=== PATIENT | female | born 1980 | race African-American/Black ===

== ENCOUNTER 2017-02-09 19:58 | Emergency (ER) | payer OTHER ==
[~2017-02-09] VITALS: Ht 165.1 cm; Wt 104.3 kg
[~2017-02-09 19:58] MED LIST: ATIVAN0.5 M1 PO; ATIVAN0.5 MG PO; CYCLOBENZAPRINE10 M1 PO; FLONASE ALLERG9.9 ML NAS; IBUPROFEN800 M1 PO; LEVSIN0.125 M1 PO; LEXAPRO10 M1 PO; MOTRIN 800MG T800 MG PO; PERCOCET 325 MG1 TA2 PO; ZITHROMAX250 M2 PO; ZOFRAN ODT4 M1 SL
[2017-02-09] MEDS ORDERED: TRAZODONE HCL50 M1 PO (20:26)
[2017-02-09] MEDS ORDERED: ABILIFY10 M1 PO (20:27)
--- NOTE | 2017-02-09 20:35 | ED CARDIAC/CP/PALPITATIONS ---
History of Present Illness General Chief Complaint: Chest Pain Stated Complaint: " CP SINCE YESTERDAY RADIATES TO RT ARM" Source: patient Exam Limitations: no limitations Vital Signs & Intake/Output Vital Signs & Intake/Output Vital Signs Date Time Temp Pulse Resp B/P B/P Pulse O2 O2 Flow FiO2 Mean Ox Delivery Rate 02/09 2158 97.3 71 15 138/72 96 Room Air Room Air 02/10 2120 Room Air Room Air 02/10 2016 98.7 71 15 118/79 98 Room Air Room Air ED Intake and Output 02/10 0000 02/09 1200 Intake Total 0 Output Total Balance 0 Intake, Oral 0 Patient 230 lb Weight Weight Reported by Patient Measurement Method Allergies Coded Allergies: NO KNOWN ALLERGIES (06/17/15) Reconcile Medications Aripiprazole (Abilify) 10 MG TABLET 1 TAB PO DAILY MENTAL HEALTH (Reported) Ibuprofen 600 MG TABLET 1 TAB PO TID PRN PAIN with food Trazodone HCl 50 MG TABLET 1 TAB PO QHS SLEEP (Reported) Triage Note: PT TO ED FOR CHEST PRESSURE AND HEADACHES X 2 DAYS. PT STATES CP IS WORSE WITH PALPATION. +SOB WITH EXERTION. O2 SAT 98% RA. NO ACUTE DISTRESS NOTED. DENIES CHANGE IN VISION WITH BILLY. ALSO REPORTS R ARM PAIN WORSE WITH MOVING ARM. Triage Nurses Notes Reviewed? yes Onset: Gradual Duration: intermittent Timing: recent history Location: substernal Activities at Onset: activity : No Patient currently breastfeeds: No HPI: Patient is a 36-year-old female with a past medical history of anxiety and depression who presents emergency room with concerns of a three-day history of intermittent chest wall pain. Patient states that approximately extremity movements deep inhalation and coughing makes worse. Patient does not smoke. Denies any illicit drug use Denies any family history of cardiac before the age of 50. Patient denies any fevers chills shortness of breath arm pain jaw pain and diaphoresis palpitations nausea leg swelling hemoptysis history of DVT or PE recent travel recent surgery, oral contraceptive use Patient has not taken any medications for symptoms. (JULI HUBBARD) Past History Travel History Traveled to [place] past 21 day No Medical History Any Pertinent Medical History? see below for history Neurological: NONE EENT: NONE Cardiovascular: NONE Respiratory: NONE Gastrointestinal: NONE Hepatic: NONE Renal: NONE Musculoskeletal: NONE Psychiatric: anxiety, depression, DEPRESSION Endocrine: NONE Blood Disorders: NONE Cancer(s): NONE Surgical History Surgical History: non-contributory Psychosocial History Who do you live with Family What is your primary language Nepalese Tobacco Use: Never used ETOH Use: denies use Illicit Drug Use: denies illicit drug use Family History Hx Contributory? No (JULI HUBBARD) Review of Systems Review of Systems Constitutional: Reports: no symptoms. EENTM: Reports: no symptoms. Respiratory: Reports: see HPI. Cardiovascular: Reports: see HPI, chest pain. GI: Reports: no symptoms. Genitourinary: Reports: no symptoms. Musculoskeletal: Reports: no symptoms. Skin: Reports: no symptoms. Neurological/Psychological: Reports: no symptoms. Hematologic/Endocrine: Reports: no symptoms. Immunologic/Allergic: Reports: no symptoms. All Other Systems: Reviewed and Negative (JULI HUBBARD) Physical Exam Physical Exam General Appearance: no apparent distress, alert, comfortable Cardiovascular: regular rate/rhythm Comments: Well-developed well-nourished person in no acute distress HEENT: Normal EENT exam Neck: Supple, no lymphadenopathy, normal range of motion without pain or tenderness Back: Nontender, no CVA tenderness. Cardiovascular: Regular rate and rhythms no murmurs rubs or gallops, normal JVP Respiratory: Anterior substernal point tenderness upon palpation. No respiratory distress.breath sounds clear to auscultation bilaterally Abdomen: Soft, nontender nondistended, no appreciable organomegaly. Normal bowel sounds. No ascites Extremity: No edema, no calf tenderness to palpation, normal and equal pulses. Bilateral upper extremity active range of motion reproduced chest wall pain Bilateral resisted range of motion noted with horizontal adduction and reproduced chest wall pain Neuro: Alert oriented x3, motor sensory normal, Skin: No appreciable rash on exposed skin, skin is warm and dry. Psych: Mood and affect is normal, memory and judgment is normal. Core Measures ACS in differential dx? Yes Severe Sepsis Present: No Septic Shock Present: No (JULI HUBBARD) Progress Differential Diagnosis: AMI, aortic dissection, atrial fibrillation, cholecystitis, CHF/pulm edema, costochondritis, hyperkalemia, hypovolemia, hyperthyroid, hyperventilation, intracranial hemorrhage, musculoskeletal pain, myocarditis, pancreatitis, pericarditis, pneumonia, pneumothorax, PSVT, pulmonary embolism, PUD/GERD, PVCs/PACs, respiratory failure, sepsis, unstable angina, V-fib/V-Tach, WPW syndrome Plan of Care: Orders Procedure Date/time Status TROPONIN LEVEL 02/09 2043 Complete COMPREHENSIVE METABOLIC PANEL 02/09 2043 Complete CBC WITHOUT DIFFERENTIAL 02/09 2043 Complete EKG 02/09 2002 Active Laboratory Tests 02/09/172058: Anion Gap 12, Estimated GFR > 60, BUN/Creatinine Ratio 16.3, Glucose 94, Calcium 9.0, Total Bilirubin 0.3, AST 15, ALT 23, Alkaline Phosphatase 84, Troponin I < 0.01, Total Protein 7.0, Albumin 3.8, Globulin 3.2, Albumin/Globulin Ratio 1.2, CBC w Diff NO MAN DIFF REQ, RBC 4.34, MCV 77.8 L, MCH 25.2 L, RDW 17.5 H, MPV 9.2, Gran % 75.2, Lymphocytes % 18.1 L, Monocytes % 5.4, Eosinophils % 0.9, Basophils % 0.4, Absolute Granulocytes 7.7 H, Absolute Lymphocytes 1.8, Absolute Monocytes 0.6, Absolute Eosinophils 0.1, Absolute Basophils 0, PUBS MCHC 32.4 L Patient currently is resting comfortably bedside. EKG was unremarkable known normal sinus rhythm. Patient has reproducible chest wall pain upon palpation and upper extremity movements. PERC score was 0 essentially ruling out pulmonary embolism Patient had unremarkable blood work negative troponin EKG was unremarkable chest x-ray unremarkable. Upon discharge patient looks well no apparent distress and I do not suspect cardiac involvement with patient's chest wall pain (MAYKEL FITZGERALD,JULI) Diagnostic Imaging: Viewed by Me: Radiology Read. Radiology Impression: no acute abnormality, no fracture Initial ED EKG: SINUS RHYTHM NOTED AT 69 BPM Prior EKG: unchanged Comments: PATIENT: HANNAH TAVAREZ PRESENT AGE: 36 PATIENT ACCOUNT NO: [id number] : 80 LOCATION: [facility] ORDERING PHYSICIAN: JULI FITZGERALD SERVICE DATE: 02/09/17 EXAM TYPE: RAD - XRY-CHEST XRAY, PA AND LATERAL EXAMINATION: XR CHEST CLINICAL INFORMATION: Chest pain COMPARISON: None TECHNIQUE: 2 views of the chest were obtained. FINDINGS: No significant abnormality is noted involving the heart, lungs, mediastinum, bony thorax or soft tissues. IMPRESSION: No acute change of the chest. DICTATED BY: SHANIA ARREAGA MD DATE/TIME DICTATED:02/09/172107 MANAGER MBA:MARY KAY (JULI HUBBARD) Departure Departure Disposition: HOME OR SELF CARE Condition: Stable Clinical Impression Primary Impression: Chest wall pain Referrals: JASVIR LIVE (PCP/Family) Additional Instructions: As discussed begin icing the area directly 20 minutes every 2 hours. Begin over -the-counter ibuprofen for pain and inflammation. If no better on Saturday follow -up with primary care doctor. If symptoms worsen return to emergency room Departure Forms: Customer Survey General Discharge Information Prescriptions: Current Visit Scripts Ibuprofen 1 TAB PO TID PRN PAIN #21 TAB with food (JULI HUBBARD) PA/TRUCK DRIVER'S OFFSIDER Co-Sign Statement Statement: ED Attending supervision documentation- [] I saw and evaluated the patient. I have also reviewed all the pertinent lab results and diagnostic results. I agree with the findings and the plan of care as documented in the PA's/TRUCK DRIVER'S OFFSIDER's documentation. [X] I have reviewed the ED Record and agree with the PA's/TRUCK DRIVER'S OFFSIDER's documentation. [] Additions or exceptions (if any) to the PAs/TRUCK DRIVER'S OFFSIDER's note and plan are summarized below: [] (JOSÉ RICHMOND,EVELINE) Critical Care Note Critical Care Note Critical Care Time: non-applicable (JULI HUBBARD)
--- NOTE | 2017-02-09 21:12 | RADIOLOGY REPORT ---
EXAMINATION: XR CHEST CLINICAL INFORMATION: Chest pain COMPARISON: None TECHNIQUE: 2 views of the chest were obtained. FINDINGS: No significant abnormality is noted involving the heart, lungs, mediastinum, bony thorax or soft tissues. IMPRESSION: No acute change of the chest.
[2017-02-09 21:14] LABS: ABSOLUTE BASOPHIL COUNT 0 /CUMM (0.0-0.2); ABSOLUTE EOSINOPHIL COUNT 0.1 /CUMM (0.0-0.7); ABSOLUTE GRANULOCYTE CT 7.7 /CUMM (1.4-6.5); ABSOLUTE LYMPH COUNT 1.8 /CUMM (1.2-3.4); ABSOLUTE MONOCYTE COUNT 0.6 /CUMM (0.10-0.60); BASOPHIL % 0.4 % (0.0-2.0); EOSINOPHIL % 0.9 % (0-5); GRANULOCYTE % 75.2 % (42.2-75.2); HEMATOCRIT 33.8 % (37-47); MEAN CORPUSCULAR HGB 25.2 PG (27.0-31.0); MEAN CORPUSCULAR HGB CONC 32.4 G/DL (33.0-37.0); MEAN CORPUSCULAR VOLUME 77.8 FL (81.0-99.0); MEAN PLATELET VOLUME 9.2 FL (7.4-10.4); PLATELET COUNT 262 /CUMM (130-400); RBC DISTRIBUTION WIDTH 17.5 % (11.5-14.5); RED BLOOD CELL CT 4.34 /CUMM (4.20-5.40); WHITE BLOOD CELL COUNT 10.2 /CUMM (4.8-10.8)
[2017-02-09 21:58] VITALS: BP 138/72
[2017-02-09] MEDS ORDERED: IBUPROFEN600 M1 PO (22:02)
== END 2017-02-09 22:15 ==
LOC: ERH 19:58
PROVIDERS: Physician Assistant
DX: R07.89 Other chest pain (principal)
CPT/HCPCS: 93005; 93010

== ENCOUNTER → 2018-04-17 | Day surgery (SDC) | payer OTHER ==
[~2018-04-17] VITALS: Ht 162.6 cm; Wt 106.1 kg
[~2018-04-17] MED LIST changes: +ABILIFY10 M1 PO; +IBUPROFEN600 M1 PO; +KETOROLAC TROME10 M1 PO; +TRAZODONE HCL50 M1 PO
--- NOTE | 2018-04-17 10:52 | Operative Report ---
Operative/Inv Procedure Report Surgery Date: 04/17/18 Name of Procedure: laparoscopy aspiration of cul de sac fluid Pre-Operative Diagnosis: pain Post-Operative Diagnosis: same Estimated Blood Loss: less than 50ml Surgeon/Automotive Electrical Fitter: Brooklynn Westbrook MD Anesthesia: general endotracheal tube
--- NOTE | 2018-04-23 13:17 | Operative Report ---
Operative/Inv Procedure Report Surgery Date: 04/10/18 Name of Procedure: Laparoscopy Pre-Operative Diagnosis: Pelvic pain Post-Operative Diagnosis: Same Estimated Blood Loss: less than 50ml Surgeon/Size Tester: Brooklynn Westbrook MD Anesthesia: general endotracheal tube Operative/Procedure Note Note: Procedure note patient was seen in the operating placed on position after adequate induction general anesthesia via endotracheal tube patient placed in dorsal supine position the vagina from dorsal fashion Berkowitz was placed sterilely examination under anesthesia performed surgeon regowned and gloved below the umbilicus a stab incision was made to allow for the entry of Veress needle the abdomen was insufflated possibly fully Z CO2 to liver vaginal 20 there is needle was a 10 mm trocar was inserted atraumatically the umbilicus sheath remained placed through that sheath laparoscope was placed and direct visualization a 5 mm port was placed 2 finger breadths of symptoms pubis in midline this allowed surgeon to remove the ovaries and tubes around I all instruments removed from the abdomen maximal CO2 oozing from the abdomen the incision at the umbilicus was oversewn using 0 the fascia 30 the skin patient tolerated that well Marcaine was injected underneath skin on Gandhi cannula was moved from the vagina Berkowitz was removed patient was returned spine position counts correct on patient was awakened from anesthesia transferred recovery room awake alert counts
== END ==
LOC: STS 02:01
DX: R10.2 Pelvic and perineal pain (principal)
CPT/HCPCS: 81025; 88305; J0131; J2250; J3490

== ENCOUNTER 2018-05-04 16:12 | Emergency (ER) | payer OTHER ==
[~2018-05-04] VITALS: Ht 165.1 cm; Wt 108.9 kg
--- NOTE | 2018-05-04 16:37 | ED GI/GU/ABDOMINAL COMPLAINT ---
History of Present Illness General Chief Complaint: General Adult Stated Complaint: SENT BY URGENT CARE FOR STOMACH PAIN FROM SURGERY Source: patient, old records Exam Limitations: no limitations Vital Signs & Intake/Output Vital Signs & Intake/Output Vital Signs Date Time Temp Pulse Resp B/P B/P Pulse O2 O2 Flow FiO2 Mean Ox Delivery Rate 05/04 2047 75 18 156/87 98 Room Air 05/04 1828 Room Air 05/04 1828 98.5 71 18 135/87 100 Room Air ED Intake and Output 05/05 0000 05/04 1200 Intake Total Output Total Balance Patient 240 lb Weight Weight Reported by Patient Measurement Method Allergies Coded Allergies: NO KNOWN ALLERGIES (06/17/15) Reconcile Medications No Known Home Medications Triage Note: PT TO ER ADVISED BY URGENT CARE FOR R/O ABD ADHESIONS. C/O 2 DAY HX OF PERIUMBILICAL PAIN, NAUSEA, AND DYSURIA. LMP 03/18/18, STATES URINE SAMPLE WAS NOT OBTAINED AT [employer] Triage Nurses Notes Reviewed? yes ? N Is pt currently ? No HPI: Patient had a recent laparoscopy for chronic pelvic pain. Patient states that since then she's been having burning with urination. Patient also states that her pain was getting better and then she was told that she didn't go back to work so she went back to work and since then she has been having severe pain in her lower abdomen. Pain increases with turning or movement. There is no radiation. The pain is sharp and burning in nature. She rates the pain as 8 out of 10. There is no nausea or vomiting. (Ghassan RICHMOND,Eddie Silva) Past History Travel History Traveled to [place] past 21 day No Medical History Any Pertinent Medical History? see below for history Neurological: NONE EENT: NONE Cardiovascular: NONE Respiratory: NONE Gastrointestinal: NONE Hepatic: NONE Renal: NONE Musculoskeletal: NONE Psychiatric: anxiety, depression, DEPRESSION Endocrine: NONE Blood Disorders: NONE Cancer(s): NONE Surgical History Surgical History: non-contributory Psychosocial History Who do you live with Family What is your primary language Kenyan Tobacco Use: Never used ETOH Use: occasional use Illicit Drug Use: denies illicit drug use Family History Hx Contributory? No (Ghassan RICHMOND,Eddie Silva) Review of Systems Review of Systems Constitutional: Reports: no symptoms. EENTM: Reports: no symptoms. Respiratory: Reports: no symptoms. Cardiovascular: Reports: no symptoms. GI: Reports: see HPI, abdominal pain. Genitourinary: Reports: see HPI, dysuria. Musculoskeletal: Reports: no symptoms. Skin: Reports: no symptoms. Neurological/Psychological: Reports: no symptoms. Hematologic/Endocrine: Reports: no symptoms. Immunologic/Allergic: Reports: no symptoms. All Other Systems: Reviewed and Negative (Ghassan RICHMOND,Eddie Silva) Physical Exam Physical Exam General Appearance: well developed/nourished, alert, awake, anxious, mild distress Head: atraumatic, normal appearance Eyes: Bilateral: PERRL, EOMI. Ears, Nose, Throat, Mouth: hearing grossly normal, moist mucous membrane Neck: normal inspection, supple, full range of motion Respiratory: normal breath sounds, chest non-tender, no respiratory distress, lungs clear Cardiovascular: regular rate/rhythm, normal peripheral pulses Gastrointestinal: normal bowel sounds, soft, no organomegaly, tenderness, NO GUARDING OR REBOUND Back: normal inspection, normal range of motion Extremities: normal range of motion Neurologic/Psych: no motor/sensory deficits, awake, alert, oriented x 3, normal gait, normal mood/affect Skin: intact, normal color, warm/dry Core Measures ACS in differential dx? No Sepsis Present: No Sepsis Focused Exam Completed? No (Ghassan RICHMOND,Eddie Silva) Progress Differential Diagnosis: POST OP PAIN Plan of Care: Orders Procedure Date/time Status URINALYSIS 05/04 163 Complete HUMAN BETA HCG SCREEN 05/04 163 Complete COMPREHENSIVE METABOLIC PANEL 05/04 163 Complete CBC WITHOUT DIFFERENTIAL 05/04 163 Complete Laboratory Tests 05/04/18 1823: Urine Color YEL, Urine Clarity CLEAR, Urine pH 7.5, Ur Specific [place] 1.020, Urine Protein NEG, Urine Ketones NEG, Urine Nitrite NEG, Urine Bilirubin NEG, Urine Urobilinogen 1.0, Ur Leukocyte Esterase NEG, Ur Microscopic EXAM NOT REQUIRED, Urine Hemoglobin NEG, Urine Glucose NEG 05/04/18 1700: Anion Gap 10, Estimated GFR > 60, BUN/Creatinine Ratio 17.5, Glucose 98, Calcium 9.1, Total Bilirubin 0.2, AST 15, ALT 20, Alkaline Phosphatase 73, Total Protein 6.5, Albumin 3.4 L, Globulin 3.1, Albumin/Globulin Ratio 1.1, Total Beta HCG NEGATIVE, CBC w Diff NO MAN DIFF REQ, RBC 4.11 L, MCV 80.9 L, MCH 26.3 L, MCHC 32.5 L, RDW 15.5 H, MPV 9.4, Gran % 74.6, Lymphocytes % 17.1 L, Monocytes % 6.4, Eosinophils % 1.6, Basophils % 0.3, Absolute Granulocytes 6.2, Absolute Lymphocytes 1.4, Absolute Monocytes 0.5, Absolute Eosinophils 0.1, Absolute Basophils 0 Initial ED EKG: none Hand-Off Endorsed To: Nii Galicia MD Endorsed Time: 1899 Pending: CT (Eddie Ferrell MD) Diagnostic Imaging: Viewed by Me: CT Scan. Discussed w/RAD: CT Scan. (Nii Galicia MD) Departure Departure Disposition: STILL A PATIENT Condition: Stable Clinical Impression Primary Impression: Abdominal pain Referrals: Patient Has No Primary Care Dr (PCP/Family) Departure Forms: Customer Survey General Discharge Information Prescriptions: Current Visit Scripts No Known Home Medications (Eddie Ferrell MD) PA/SHOW DOG TRAINER Co-Sign Statement Statement: ED Attending supervision documentation- [x] I have reviewed the ED Record and agree with the PA's/SHOW DOG TRAINER's documentation. (Nii Galicia MD) ED Attending Observation Initial Observation Note: I have seen and personally examined HANNAH TAVAREZ on 05/04/18 at 1654. I agree with the current emergency department documentation. The disposition (admission or discharge) is uncertain at this time, she needs a period of observation for the following reason(s): The ED Nurse caring for this patient has been personally informed as to what the patient is being observed for. (Eddie Ferrell MD)
[2018-05-04 17:13] LABS: ABSOLUTE BASOPHIL COUNT 0 /CUMM (0.0-0.2); ABSOLUTE EOSINOPHIL COUNT 0.1 /CUMM (0.0-0.7); ABSOLUTE GRANULOCYTE CT 6.2 /CUMM (1.4-6.5); ABSOLUTE LYMPH COUNT 1.4 /CUMM (1.2-3.4); ABSOLUTE MONOCYTE COUNT 0.5 /CUMM (0.10-0.60); BASOPHIL % 0.3 % (0.0-2.0); EOSINOPHIL % 1.6 % (0-5); GRANULOCYTE % 74.6 % (42.2-75.2); HEMATOCRIT 33.3 % (37-47); MEAN CORPUSCULAR HGB 26.3 PG (27.0-31.0); MEAN CORPUSCULAR HGB CONC 32.5 G/DL (33.0-37.0); MEAN CORPUSCULAR VOLUME 80.9 FL (81.0-99.0); MEAN PLATELET VOLUME 9.4 FL (7.4-10.4); PLATELET COUNT 250 /CUMM (130-400); RBC DISTRIBUTION WIDTH 15.5 % (11.5-14.5); RED BLOOD CELL CT 4.11 /CUMM (4.20-5.40); WHITE BLOOD CELL COUNT 8.3 /CUMM (4.8-10.8)
--- NOTE | 2018-05-04 19:32 | CT SCAN REPORT ---
EXAMINATION: CT ABD PELVIS W/O IV CONTRAS CLINICAL INFORMATION: Postoperative pain presumptive diagnosis abscess. COMPARISON: None TECHNIQUE: Multidetector volumetric imaging was performed from the superior aspect of the liver through the pubic symphysis noncontrasted study. Sagittal and coronal reformatted images were obtained on the technologist's workstation. DLP: 1010 mGy-cm FINDINGS: LOWER THORAX: Included lung bases are clear. HEPATOBILIARY: No focal hepatic lesions. No biliary ductal dilatation. GALLBLADDER: Gallbladder unremarkable. SPLEEN: Spleen is normal in size. PANCREAS: No focal mass or ductal dilatation. STOMACH AND GASTROINTESTINAL TRACT: Stomach is grossly unremarkable. There is no bowel distention or thickening. No CT evidence of appendicitis. ADRENALS: No adrenal nodules. KIDNEYS/URETERS: No hydronephrosis, stones or solid mass lesions. URINARY BLADDER: Unremarkable PELVIC VISCERA: Unremarkable PERITONEUM: No free air or fluid. LYMPH NODES: No lymphadenopathy. VASCULAR:Abdominal aorta normal in size, no aneurysm found. BONES, ABDOMINAL WALL AND SOFT TISSUES: Age-appropriate changes of the spine and skeletal system, no destructive osteolytic or osteosclerotic bone lesion found IMPRESSION: 1. No CT evidence of intra-abdominal inflammation or abscess formation found. 2. Normal nonobstructive bowel gas pattern. Normal appendix. Liver spleen pancreas gallbladder and adrenals are normal.
[2018-05-04 20:47] VITALS: BP 156/87
== END 2018-05-04 20:47 ==
LOC: ERH 16:12
PROVIDERS: Emergency Medicine
DX: R10.2 Pelvic and perineal pain (principal); R30.0 Dysuria
CPT/HCPCS: 74176; 81003

== ENCOUNTER 2018-05-26 00:22 | Emergency (ER) | payer OTHER ==
[~2018-05-26] VITALS: Ht 162.6 cm; Wt 108.9 kg
[2018-05-26 01:45] LABS: ABSOLUTE BASOPHIL COUNT 0 /CUMM (0.0-0.2); ABSOLUTE EOSINOPHIL COUNT 0.1 /CUMM (0.0-0.7); ABSOLUTE GRANULOCYTE CT 5.6 /CUMM (1.4-6.5); ABSOLUTE LYMPH COUNT 1.6 /CUMM (1.2-3.4); ABSOLUTE MONOCYTE COUNT 0.5 /CUMM (0.10-0.60); BASOPHIL % 0.6 % (0.0-2.0); EOSINOPHIL % 1.4 % (0-5); GRANULOCYTE % 71.3 % (42.2-75.2); HEMATOCRIT 33.3 % (37-47); MEAN CORPUSCULAR HGB 26.1 PG (27.0-31.0); MEAN CORPUSCULAR HGB CONC 33.1 G/DL (33.0-37.0); MEAN CORPUSCULAR VOLUME 78.8 FL (81.0-99.0); MEAN PLATELET VOLUME 8.8 FL (7.4-10.4); PLATELET COUNT 312 /CUMM (130-400); RBC DISTRIBUTION WIDTH 15.4 % (11.5-14.5); RED BLOOD CELL CT 4.23 /CUMM (4.20-5.40); WHITE BLOOD CELL COUNT 7.9 /CUMM (4.8-10.8)
--- NOTE | 2018-05-26 01:50 | ED GENERAL ADULT ---
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 PT STATES PAIN HAS IMPROVED FROM 10 TO 610. PMH OF ANXIETY, RAN OUT OF MEDS 2 MONTHS AGO. +NAUSEA. DENIES VOMITTING. +DIZZINESS, +SOB. VSS Triage Nurses Notes Reviewed? yes Onset: Abrupt Duration: hour(s): Timing: single episode today : No Patient currently breastfeeds: No HPI: 3 AM 37-year-old female presents to the emergency department for chest discomfort. She says she has brning chest pain that started while she was getting ready for work and then it became worse while she was at work. The onset of the pain was approximately 2 hours prior to arrival. She denies any shortness of breath. She says she has a prior history of anxiety. Past History Travel History Traveled to [place] past 21 day No Medical History Any Pertinent Medical History? see below for history Neurological: NONE EENT: NONE Cardiovascular: NONE Respiratory: NONE Gastrointestinal: NONE Hepatic: NONE Renal: NONE Musculoskeletal: NONE Psychiatric: anxiety, depression, DEPRESSION Endocrine: NONE Blood Disorders: NONE Cancer(s): NONE PARK INTERPRETIVE RANGER/Reproductive: NONE Surgical History Surgical History: non-contributory Psychosocial History Who do you live with Family What is your primary language Belgian Tobacco Use: Never used ETOH Use: occasional use Illicit Drug Use: denies illicit drug use Family History Hx Contributory? No Review of Systems Review of Systems Constitutional: Reports: see HPI. Denies: fever. EENTM: Reports: no symptoms. Denies: blurred vision. Respiratory: Reports: no symptoms. Denies: short of breath. Cardiovascular: Reports: see HPI. Denies: palpitations. GI: Reports: no symptoms. Denies: vomiting. Genitourinary: Reports: no symptoms. Musculoskeletal: Reports: no symptoms. Skin: Reports: no symptoms. Neurological/Psychological: Reports: see HPI. Hematologic/Endocrine: Reports: no symptoms. Immunologic/Allergic: Reports: no symptoms. All Other Systems: Reviewed and Negative Physical Exam Physical Exam General Appearance: well developed/nourished, alert, awake, anxious, mild distress Head: atraumatic, normal appearance Eyes: Bilateral: normal appearance, PERRL, EOMI. Ears, Nose, Throat: normal ENT inspection Neck: normal inspection, full range of motion Respiratory: normal breath sounds, lungs clear Cardiovascular: regular rate/rhythm Peripheral Pulses: 4+ radial (R), 4+ radial (L) Gastrointestinal: soft, non-tender Back: normal inspection, normal range of motion Extremities: normal inspection, normal range of motion Neurologic/Psych: no motor/sensory deficits, awake, alert, oriented x 3 Skin: intact, normal color, warm/dry Core Measures ACS in differential dx? No CVA/TIA Diagnosis: No Sepsis Present: No Sepsis Focused Exam Completed? No Progress Differential Diagnoses I considered the following diagnoses in my evaluation of the patient: [Acute coronary syndrome, pulmonary embolism, pneumothorax, anxiety, panic attack,] Plan of Care: Orders Procedure Date/time Status TROPONIN LEVEL 05/26 0300 Complete EKG 05/26 0300 Active URINE 05/26 0053 Complete URINALYSIS 05/26 005 Complete TROPONIN LEVEL 05/26 0053 Complete LIPASE 05/26 0053 Complete COMPREHENSIVE METABOLIC PANEL 05/26 005 Complete CBC WITHOUT DIFFERENTIAL 05/26 53 Complete EKG 05/26 0026 Active Laboratory Tests 05/26/18 0313: Troponin I < 0.01 05/26/18 0147: Urinalysis LIGHT H, Urine Color STRAW, Urine Clarity CLEAR, Urine pH 6.0, Ur Specific [place] >= 1.030, Urine Protein TRACE H, Urine Ketones NEG, Urine Nitrite NEG, Urine Bilirubin NEG, Urine Urobilinogen 0.2, Ur Leukocyte Esterase NEG, Ur Microscopic SEDIMENT EXAMINED, Urine RBC 1-3, Urine WBC 1-3 H, Ur Epithelial Cells MOD H, Urine Bacteria MOD H, Urine Mucus MOD H, Urine Hemoglobin NEG, Urine Glucose NEG, Urine Test NEGATIVE 05/26/18 0130: Anion Gap 10, Estimated GFR > 60, BUN/Creatinine Ratio 21.3, Glucose 105 H, Calcium 9.3, Total Bilirubin 0.2, AST 14, ALT 17, Alkaline Phosphatase 84, Troponin I < 0.01, Total Protein 7.2, Albumin 3.9, Globulin 3.3, Albumin/ Globulin Ratio 1.2, Lipase 54, CBC w Diff NO MAN DIFF REQ, RBC 4.23, MCV 78.8 L , MCH 26.1 L, MCHC 33.1, RDW 15.4 H, MPV 8.8, Gran % 71.3, Lymphocytes % 20.6, Monocytes % 6.1, Eosinophils % 1.4, Basophils % 0.6, Absolute Granulocytes 5.6, Absolute Lymphocytes 1.6, Absolute Monocytes 0.5, Absolute Eosinophils 0.1, Absolute Basophils 0 Initial ED EKG: NSR Prior EKG: unchanged Repeat EKG: unchanged Departure Departure Disposition: STILL A PATIENT Condition: Stable Clinical Impression Primary Impression: Chest pain Referrals: Patient Has No Primary Care Dr (PCP/Family) Departure Forms: Customer Survey General Discharge Information Prescriptions: Current Visit Scripts No Known Home Medications Comments PERC score and Well score low risk, patient denies any shortness of breath to me. No tachycardia and no hypoxia. Symptoms resolved in the ED. She says is consistent with her prior history of anxiety. Serial EKG and troponin are unremarkable. She will follow-up with her doctor this week. Critical Care Note Critical Care Note Critical Care Time: non-applicable
--- NOTE | 2018-05-26 02:26 | RADIOLOGY REPORT ---
EXAMINATION: XR CHEST CLINICAL INFORMATION: Chest pain COMPARISON: 11/27/2017 TECHNIQUE: 2 views of the chest were obtained. FINDINGS: The lungs are well expanded. There is no focal consolidation, edema, or effusion. No pneumothorax. The cardiomediastinal silhouette is within normal limits. No acute osseous abnormality. IMPRESSION: No acute pulmonary finding.
[2018-05-26 05:08] VITALS: BP 130/68
== END 2018-05-26 05:10 ==
LOC: ERH 00:22
PROVIDERS: Physician Assistant Medical
DX: R07.89 Other chest pain (principal)
CPT/HCPCS: 71046; 81001; 81025; 93005; 93010

== ENCOUNTER 2018-07-09 05:10 | Emergency (ER) | payer OTHER ==
--- NOTE | 2018-07-09 05:26 | ED GI/GU/ABDOMINAL COMPLAINT ---
History of Present Illness General Chief Complaint: Abdominal Pain/Flank Pain Stated Complaint: BACK PAIN Source: patient Exam Limitations: no limitations Vital Signs & Intake/Output Vital Signs & Intake/Output ED Intake and Output 07/10 0000 07/09 1200 Intake Total 50 Output Total Balance 50 Intake, IV 50 Allergies Coded Allergies: NO KNOWN ALLERGIES (06/17/15) Reconcile Medications No Known Home Medications Triage Note: 38YO FEMALE TO RM 2 W/CO BILATERAL FLANK PAIN STATES SHE " IS PRESENTLY ON MACRODANTIN FOR INFECTION AND PAIN IS WORSE THIS AM" Triage Nurses Notes Reviewed? yes ? n Is pt currently ? No Onset: Gradual Duration: hour(s): Timing: recent history Location: epigastric, right flank, right upper quadrant Radiation: no radiation Activities at Onset: none Modifying Factors: Worsens With: palpation. Associated Symptoms: abdominal pain, back pain HPI: 38 yo woman presents with 1 hour history of mid epigastric abdominal pain that radiates to her back. "It woke me up from sleep." She notes no nausea, vomiting, dysuria, chills, chest pain, shortness of breath. She did not take any supportive medications. She called 911. She was seen for similar symptoms 1 month ago, was diagnosed with a uti at [facility] ED and given antibiotics. Her symptoms resolved. (Frida RICHMOND,Nii Friedman) Past History Travel History Traveled to [place] past 21 day No Medical History Any Pertinent Medical History? see below for history Neurological: NONE EENT: NONE Cardiovascular: NONE Respiratory: NONE Gastrointestinal: NONE Hepatic: NONE Renal: NONE Musculoskeletal: NONE Psychiatric: anxiety, depression, DEPRESSION Endocrine: NONE Blood Disorders: NONE Cancer(s): NONE DIAMOND PICKER/Reproductive: NONE Surgical History Surgical History: non-contributory Psychosocial History Who do you live with Family What is your primary language Sinhala Tobacco Use: Never used Family History Hx Contributory? No (Frida RICHMOND,Nii Friedman) Review of Systems Review of Systems Constitutional: Reports: no symptoms. EENTM: Reports: no symptoms. Respiratory: Reports: no symptoms. Cardiovascular: Reports: no symptoms. GI: Reports: no symptoms. Genitourinary: Reports: no symptoms. Musculoskeletal: Reports: no symptoms. Skin: Reports: no symptoms. Neurological/Psychological: Reports: no symptoms. Hematologic/Endocrine: Reports: no symptoms. Immunologic/Allergic: Reports: no symptoms. All Other Systems: Reviewed and Negative (Frida RICHMOND,Nii Friedman) Physical Exam Physical Exam General Appearance: well developed/nourished, mild distress Head: atraumatic, normal appearance Eyes: Bilateral: normal appearance. Ears, Nose, Throat, Mouth: hearing grossly normal, moist mucous membrane Neck: normal inspection, supple, full range of motion Respiratory: normal breath sounds, chest non-tender, no respiratory distress, quiet respiration, lungs clear Cardiovascular: regular rate/rhythm Gastrointestinal: normal bowel sounds, soft, mid epigastric tenderness, right upper quadrant tenderness, without lewis's sign, rebound, guarding. Back: normal inspection, normal range of motion, muscle spasm, no vertebral tenderness, right mid and lower lumbar muscle spasm Extremities: normal range of motion Neurologic/Psych: no motor/sensory deficits, awake, alert, oriented x 3 Skin: intact, normal color, warm/dry Core Measures ACS in differential dx? No Sepsis Present: No Sepsis Focused Exam Completed? No (Frida RICHMOND,Nii Friedman) Progress Differential Diagnosis: muscle spasm, gerd, biliary colic vs other. Plan of Care: Orders Procedure Date/time Status TROPONIN LEVEL 07/09 528 Complete LIPASE 07/09 528 Complete HEPATIC FUNCTION PANEL 07/09 528 Complete D-DIMER 07/09 528 Complete CBC WITHOUT DIFFERENTIAL 07/09 528 Complete BASIC METABOLIC PANEL 07/09 528 Complete AMYLASE 07/09 528 Complete EKG 07/09 528 Active URINE 07/09 515 Complete URINALYSIS 07/09 512 Complete Laboratory Tests 07/09/18 0642: Anion Gap 9, Estimated GFR > 60, BUN/Creatinine Ratio 21.4, Glucose 102 H, Calcium 9.3, Total Bilirubin 0.2, Direct Bilirubin 0.2, AST 14, ALT 20, Alkaline Phosphatase 80, Troponin I < 0.01, Total Protein 7.0, Albumin 3.9, Amylase 67, Lipase 49 07/09/18 0550: D-Dimer High Sensitivty < 200, CBC w Diff NO MAN DIFF REQ, RBC 4.43, MCV 79.6 L , MCH 25.7 L, MCHC 32.3 L, RDW 16.5 H, MPV 9.2, Gran % 71.9, Lymphocytes % 20.0 L, Monocytes % 6.1, Eosinophils % 1.7, Basophils % 0.3, Absolute Granulocytes 6.0, Absolute Lymphocytes 1.7, Absolute Monocytes 0.5, Absolute Eosinophils 0.1, Absolute Basophils 0 07/09/18 0539: Urine Test NEGATIVE 07/09/18 0539: Urine Color YEL, Urine Clarity HAZY H, Urine pH 6.0, Ur Specific [place] >= 1.030, Urine Protein NEG, Urine Ketones NEG, Urine Nitrite NEG, Urine Bilirubin NEG, Urine Urobilinogen 0.2, Ur Leukocyte Esterase NEG, Ur Microscopic SEDIMENT EXAMINED, Urine RBC 1-3, Urine WBC 1-3 H, Ur Epithelial Cells MANY H, Urine Bacteria MANY H, Urine Mucus FEW, Urine Hemoglobin NEG, Urine Glucose NEG Diagnostic Imaging: Viewed by Me: CT Scan. Discussed w/RAD: CT Scan. Initial ED EKG: sinus, low voltage in inferior leads, borderline left axis. no significant change from prior. (Frida RICHMOND,Nii Friedman) Departure Departure Disposition: STILL A PATIENT Condition: Stable Clinical Impression Primary Impression: Abdominal pain Referrals: Patient Has No Primary Care Dr (PCP/Family) Departure Forms: Customer Survey General Discharge Information Prescriptions: Current Visit Scripts No Known Home Medications Comments pt signed out to dr. ross at 07/09/18, 7am. (Frida RICHMOND,Nii Friedman) Departure Comments 07/09/18 9:27 AM The patient was signed out to me by Dr. Gailcia. She is having ongoing epigastric and back pain. Ultrasound shows cholelithiasis equivocal for cholecystitis. She has no white count of fever. She is unable to stay for surgical consultation. Risks were explained. She will follow-up with the surgeon this week or return to the emergency department sooner. She was advised to have the surgical consultation but signed out AMA. (Eligio Otoole DO)
[2018-07-09 06:04] LABS: ABSOLUTE BASOPHIL COUNT 0 /CUMM (0.0-0.2); ABSOLUTE EOSINOPHIL COUNT 0.1 /CUMM (0.0-0.7); ABSOLUTE LYMPH COUNT 1.7 /CUMM (1.2-3.4); ABSOLUTE MONOCYTE COUNT 0.5 /CUMM (0.10-0.60); BASOPHIL % 0.3 % (0.0-2.0); EOSINOPHIL % 1.7 % (0-5); GRANULOCYTE % 71.9 % (42.2-75.2); HEMATOCRIT 35.2 % (37-47); MEAN CORPUSCULAR HGB 25.7 PG (27.0-31.0); MEAN CORPUSCULAR HGB CONC 32.3 G/DL (33.0-37.0); MEAN CORPUSCULAR VOLUME 79.6 FL (81.0-99.0); MEAN PLATELET VOLUME 9.2 FL (7.4-10.4); PLATELET COUNT 311 /CUMM (130-400); RBC DISTRIBUTION WIDTH 16.5 % (11.5-14.5); RED BLOOD CELL CT 4.43 /CUMM (4.20-5.40); WHITE BLOOD CELL COUNT 8.3 /CUMM (4.8-10.8)
[2018-07-09 07:52] VITALS: BP 119/65
--- NOTE | 2018-07-09 08:00 | RADIOLOGY REPORT ---
EXAMINATION: XR PORTABLE CHEST CLINICAL INFORMATION: Chest pain COMPARISON: Multiple priors, most recent dated 05/26/2018. TECHNIQUE: Portable frontal view of the chest was obtained. FINDINGS: No significant abnormality is noted involving the heart, lungs, mediastinum, or bony thorax. IMPRESSION: Unremarkable examination.
--- NOTE | 2018-07-09 08:08 | CT SCAN REPORT ---
EXAMINATION: CT ABDOMEN AND PELVIS WITHOUT CONTRAST CLINICAL INFORMATION: Right upper quadrant discomfort, right flank pain COMPARISON: CT abdomen pelvis dated 05/04/2018 TECHNIQUE: Multidetector volumetric imaging was performed from the superior aspect of the liver through the pubic symphysis. Sagittal and coronal reformatted images were obtained on the technologist's workstation. DLP: 630 mGy-cm FINDINGS: LUNG BASES: The visualized lung bases are unremarkable. LIVER, GALLBLADDER, AND BILIARY TREE: The noncontrast liver is normal in size, shape, and attenuation. No focal hepatic lesion or biliary ductal dilatation is present. Subtle linear high density present along the gallbladder wall. Otherwise, the gallbladder is unremarkable without significant wall thickening or pericholecystic inflammatory change. PANCREAS: Unremarkable. SPLEEN: Unremarkable. ADRENAL GLANDS: Unremarkable. KIDNEYS AND URETERS: The kidneys are normal in size, shape, and attenuation. No hydronephrosis, hydroureter, or calculi seen. No perinephric stranding. BLADDER: Underdistended, unremarkable. GASTROINTESTINAL TRACT: The small and large bowel are unremarkable. The appendix is unremarkable. ABDOMINAL WALL: No significant hernia is appreciated. LYMPH NODES: Normal. VASCULAR: Unremarkable. PELVIC VISCERA: Unremarkable. No free fluid. OSSEOUS STRUCTURES: Unremarkable. IMPRESSION: Subtle linear high density material present along the gallbladder wall. Uncertain if this represents tiny gallstones. This could be correlated with right upper quadrant ultrasound as clinically indicated. Otherwise, unremarkable examination.
--- NOTE | 2018-07-09 09:08 | ULTRASOUND REPORT ---
EXAMINATION: US ABDOMEN LIMITED CLINICAL INFORMATION: Right upper quadrant pain. COMPARISON: CT abdomen pelvis dated 07/09/2018. TECHNIQUE: Real-time imaging of the right upper quadrant abdominal viscera. FINDINGS: PANCREAS: The pancreas is normal in size and echogenicity. LIVER: The liver demonstrates normal size, contour and echogenicity. No focal lesion or intrahepatic biliary duct dilatation. GALLBLADDER: The gallbladder is physiologically distended. It contains 2 mobile calculi measuring 1.7 x 0.6 x 1.2 cm and 1.6 x 0.8 x 1.5 cm. Gallbladder wall is top normal to minimally thickened measuring 3.4 mm. There is minimal fluid within the gallbladder wall. The sonographic Linares's sign is reported as negative by the performing technologist. COMMON BILE DUCT: Normal in caliber measuring 0.3 cm in diameter. RIGHT KIDNEY: No hydronephrosis. No renal calculi or focal parenchymal lesions. The kidney measures 10.6 cm in maximum dimension. FREE FLUID: None. IMPRESSION: - The gallbladder is physiologically distended and contains 2 mobile calculi measuring 1.7 cm and 1.6 cm. The sonographic Linares sign is reported as negative by the performing technologist. Gallbladder wall is top normal to minimally thickened, measuring 3.4 mm. There is minimal fluid within the gallbladder wall. The above findings are equivocal for the diagnosis of acute cholecystitis. If there is continued clinical concern for acute cholecystitis nuclear medicine imaging is recommended.
== END 2018-07-09 09:46 | disposition left against medical advice (07) ==
LOC: ERH 05:10
PROVIDERS: Pediatrics
DX: R10.13 Epigastric pain (principal); R10.11 Right upper quadrant pain
CPT/HCPCS: 71045; 74176; 81001; 81025; 93005; 93010; 96374; 96375; J1885